=== PATIENT | female | born 1995 | race Asian ===

== ENCOUNTER 2016-08-17 23:16 | Inpatient (IN) | payer OTHER ==
--- NOTE | 2016-08-17 23:39 | ED ---
Ayden Darby Rebecca, scribed for Rick Crowley MD on 08/17/16 at 2332 . Psychiatric Complaint - HPI Summary HPI Summary: Pt is a 21 y/o F [facility] police as a 941 for sudden onset SIs and depression. Sx began suddenly tonight and have been constant since onset. Reports that she had SIs earlier, but sx have resolved. Currently is still mildly sad/depressed. Sx aggravated by a recent break up, alleviated by nothing. Denies any pain. - History Of Current Complaint Chief Complaint: EDMentalHealth Time Seen by Provider: 08/17/16 23:26 Hx Obtained From: Patient Onset/Duration: Sudden Onset, Lasting Hours Timing: Constant Severity Initially: Moderate Severity Currently: Mild Character: Depressed Aggravating Factor(s): Recent Stress - Breakup Alleviating Factor(s): Nothing Associated Signs And Symptoms: Positive: Negative Has Suicidal: Reports: Thoughts - Previously, resolved Recent Stressor(s): Break up - Allergies/Home Medications Allergies/Adverse Reactions: Allergies Allergy/AdvReac Type Severity Reaction Status Date / Time Peanut-containing Drug Allergy Severe Anaphylatic Verified 08/17/16 23:24 Products Shock Cumin Oil Allergy Hives/Diff. Verified 08/17/16 23:24 Breathing/I tching Eggs or Egg-derived Products Allergy Hives/Diff. Verified 08/17/16 23:24 Breathing/I tching Levofloxacin [From Levaquin] Allergy Diarrhea Verified 08/17/16 23:24 Peanut Oil Allergy Hives/Diff. Verified 08/17/16 23:24 Breathing/I tching Tigist Oil Allergy Hives/Diff. Verified 08/17/16 23:24 Breathing/I tching Shellfish-derived Products Allergy Hives/Diff. Verified 08/17/16 23:24 Breathing/I tching Tree Nuts Allergy Hives/Diff. Verified 08/17/16 23:24 Breathing/I tching Home Medications: Home Medications Lurasidone HCl [Latuda] 20 mg PO DAILY 08/18/16 [History Confirmed 08/18/16] PMH/Surg Hx/FS Hx/Imm Hx Respiratory History: Reports: Hx Pneumonia GI History: Reports: Other GI Disorders - ulcerative colitis, not active since 2013 Sensory History: Reports: Hx Contacts or Glasses Opthamlomology History: Reports: Hx Contacts or Glasses Psychiatric History: Reports: Hx Anxiety, Hx Post Traumatic Stress Disorder, Hx Community Mental Health Tx, Hx Suicide Attempt - OD Denies: Hx Eating Disorder, Hx of Violent Episodes Against Others Infectious Disease History: No Infectious Disease History: Denies: Traveled Outside the [place] in Last 30 Days - Family History Known Family History: Positive: Unknown - Social History Alcohol Use: Rare Alcohol Amount: 1 drink Substance Use Type: Reports: Marijuana Substance Use Comment - Amount & Last Used: pt stated she smokes about 1x per month Smoking Status (MU): Light Every Day Tobacco Smoker Amount Used/How Often: Smokes socially Review of Systems Negative: Arthralgia Positive: Depressed All Other Systems Reviewed And Are Negative: Yes Physical Exam Triage Information Reviewed: Yes Vital Signs On Initial Exam: Initial Vitals Temp Pulse Resp BP Pulse Ox 97.7 F 88 14 110/78 98 08/17/16 23:19 08/17/16 23:19 08/17/16 23:19 08/17/16 23:19 08/17/16 23:19 Vital Signs Reviewed: Yes Appearance: Positive: No Pain Distress, Thin Skin: Positive: Warm Head/Face: Positive: Normal Head/Face Inspection Eyes: Positive: ENUICE Neck: Positive: Supple Respiratory/Lung Sounds: Positive: Clear to Auscultation, Breath Sounds Present Cardiovascular: Positive: Normal Abdomen Description: Positive: Nontender, Soft Musculoskeletal: Positive: Strength/ROM Intact Neurological: Positive: Alert, Oriented to Person Place, Time Diagnostics - Vital Signs Vital Signs Temp Pulse Resp BP Pulse Ox 08/17/16 23:19 97.7 F 88 14 110/78 98 - Laboratory Result Diagrams: 08/17/16 23:35 08/17/16 23:35 Lab Statement: Any lab studies that have been ordered have been reviewed, and results considered in the medical decision making process. Course/Dx - Course Assessment/Plan: She is a 21 y/o F with [facility] [employer] police as a 941 with sudden onset SIs and depression, caused by recent break up. Confirmed SIs have resolved. Is still mildly depressed. Denies any pain. Medically cleared for MHE at 0043. Pt will be admitted on status with a dx of suicidal ideations. - Differential Dx/Clinical Impression Provider Diagnosis: Suicidal ideations Discharge - Discharge Plan Condition: Guarded Disposition: ADMITTED TO [facility] The documentation as recorded by the Ayden cruz Rebecca accurately reflects the service I personally performed and the decisions made by me, Rick Crowley MD.
[2016-08-17 23:47] LABS: Hematocrit 38 % (35-47); Hemoglobin 12.6 g/dl (12.0-16.0); Mean Corpuscular HGB Conc 33 g/dl (31-36); Mean Corpuscular Hemoglobin 30 pg (27-31); Mean Corpuscular Volume 91 fL (80-97); Mean Platelet Volume 8 um3 (7.4-10.4); Red Blood Count 4.21 10^6/ul (4.0-5.4); Red Cell Distribution Width 13 % (10.5-15); White Blood Count 9.9 10^3/ul (3.5-10.8)
[2016-08-18] LABS: Urine Bacteria 2+ (Absent); Urine Bilirubin Negative (Negative); Urine Glucose Negative (Negative); Urine Nitrite Negative (Negative)
[2016-08-18 00:04] LABS: ALT 8 U/L (7-52); AST 13 U/L (13-39); Albumin 4.3 g/dL (3.2-5.2); Alkaline Phosphatase 48 U/L (34-104); Anion Gap 8 mmol/L (2-11); Blood Urea Nitrogen 14 mg/dL (6-24); CO2 Carbon Dioxide 24 mmol/L (22-32); Calcium 8.9 mg/dL (8.6-10.3); Chloride 103 mmol/L (101-111); EGFR African American 135.8 (>60); EGFR Non-African American 105.6 (>60); Glucose 97 mg/dL (70-100); Potassium 3.3 mmol/L (3.5-5.0); Sodium 135 mmol/L (133-145); Total Protein 7.3 g/dL (6.4-8.9)
[2016-08-18 00:10] LABS: Benzodiazepine Urine Screen None Detected (None Detect)
[2016-08-18 00:38] LABS: Acetaminophen < 15 mcg/mL; Alcohol < 10 mg/dL (<10); Salicylate < 2.50 mg/dL (<30)
[2016-08-18 00:48] LABS: TSH (Thyroid Stimulating Horm) 2.89 mcIU/mL (0.34-5.60)
[2016-08-18] MEDS ORDERED: Acetaminophen TAB* 325 MG PO ONE (09:00)
[2016-08-18] MEDS ORDERED: LORazepam TAB(*) 1 MG PO ONE ×2 (11:25→14:00)
[2016-08-18] MEDS ORDERED: LORazepam TAB(*) 1 MG ONE (14:55)
[2016-08-18] MEDS ORDERED: Nicotine Inhaler* 10 MG AMP INH PRN (20:35)
[2016-08-18] MEDS ORDERED: Nicotine GUM* 2 MG PO PRN (20:35)
[2016-08-18] MEDS ORDERED: hydrOXYzine HCL TAB* 50 MG PO ONE (21:00)
[2016-08-19] MEDS ORDERED: hydrOXYzine HCL TAB* 50 MG PO PRN (11:41)
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
[2016-08-19] MEDS: CMCS: Lurasidone (NF) 20 MG TAB PO SCH (17:06)
--- NOTE | 2016-08-20 14:09 | PN ---
MHU: Group Therapy Note - Service Type Service Type: [id number] Group Psychotherapy - Cognitive Behavioral Group Therapy ( CBT):Patient was attentive and participatory in CBT programming this morning, and remained in good behavioral control. Patient expressed positive insights regarding relevant treatment interventions and goals.
--- NOTE | 2016-08-20 16:28 | PN ---
Subjective - Subjective Service Type: 55905 Hosp care 15 min low complexity Subjective: Irais reports oversedation at 50 mg dosing of prn hydroxyzine for anxiety, and requests another medication for anxiety. She reports that her appetite has returned. She reports that Latuda makes her feel restless and has been causing troubles with her sleep, but she feels it has been helpful for her mood and so she wants to continue taking it. She says her main problem now is with anxiety , that she rates 8/10. She reports that when she was admitted she told the government instructor in the ED that she would not work with Dr Magallon. She says this is because he told her she is narcissistic and has borderline personality disorder. Objective - Appearance Appearance: Healthy Appearing Dysmorphic Features: No Hygiene: Normal Grooming: Well Kept - Behavior Psychomotor Activities: Normal Exhibits Abnormal Movement: No - Attitude and Relatedness Attitude and Relatedness: Well Related Eye Contact: Good - Speech Quality: Unpressured Latencies: Long Quantity: Appropriate - Mood Patient's Decription of Mood: "Anxious" - Affect Observed Affect: Depressed Affect Consistent with: Dysphoria - Thought Process Patient's Thought Process: Coherent, Goal Directed Thought Content: No Passive Wish, No Suicidal Planning, No Homicidal Ideation, No Paranoid Ideation - Sensorium Experiencing Hallucinations: No, Sensorium is Clear Type of Hallucinations: Visual: No, Auditory: No, Command: No - Level of Consciousness Level of Consciousness: Alert Orientation: Yes Intact, Yes Orientated to Time, Yes Orientated to Place, Yes Orientated to Person - Impulse Control Impulse Control: Tenuous - Insight and Judgement Insight and Judgement: Poor - Group Participation Particating in Group Activities: Yes - Medication Management Medication Management Adherence: Yes Assessment - Assessment Merits Inpatient Hospitalization: For Stabilization, For Discharge Planning Inpatient DSM-IV Dx: By history bipolar affective disorder; also by history borderline personality disorder; benzodiazepine use disorder, severe, reportedly in sustained remission, notably with a negative toxicology screen for benzodiazepines. Clinical Impression: This is the third psychiatric admission for this 21-year-old woman who has been variously diagnosed with borderline personality disorder and bipolar affective disorder. She presents on this occasion saying that she feels that she is in the midst of a mixed episode with some depressive and some manic symptoms, but notably the depressive symptoms, in fact most symptoms, in response to a break- up with a 62 year-old boyfriend. Her reactive mood points toward diagnosis with some form of personality disorder. On review of specific symptomatology of borderline personality disorder, such as stormy relationships, unstable sense of self, labile mood, self-injurious behaviors and parasuicidal gestures, she does give negative report. We will be continuing for now the Latuda that she has started with Dr. Isaacs. 3.24.17 For anxiety, we will try reduced dosing of hydroxyzine. I explained to Irais that narcissism is a wide ranging psychological entity, and of Dr Magallon spoke of it with her it would be toward developing a better understanding of he psychological difficulties toward the goal of better mental health. I encouraged her to broach her concerns with him this weekend with the goal of better understanding. Plan - Plan Treatment Plan: Name: IRAIS ARROYO Birthdate: 1995 [id number] Continue Latuda, reduce dose of hydroxyzine to 10 mg. Encourage groups, milieu and a collaborative stance with the extended treatment team. Monitor MS and safety. Arrange follow up with Dr Isaacs et al at [facility]. Medications: Current Medications Hydroxyzine HCl (Atarax Tab*) 10 mg PO Q4H PRN PRN Reason: ANXIETY Lurasidone HCl (Latuda (Nf)) 20 mg PO 1700 JES Last Admin: 08/19/16 17:06 Dose: 20 mg Nicotine (Nicotine Inhaler*) 10 mg INH Q2H PRN PRN Reason: CRAVING Nicotine Polacrilex (Nicotine Gum*) 2 mg PO Q2H PRN PRN Reason: CRAVING Last Admin: 08/19/16 12:23 Dose: 2 mg - Discharge Plan Discharge Plan: Outpatient Follow Up Outpatient Program: [facility]
[2016-08-20] MEDS: CMCS: Lurasidone (NF) 20 MG TAB PO SCH (16:43)
[2016-08-20] MEDS ORDERED: Mouth Piece, Nicotine* 1 EACH CARTRIDGE ONE (18:24)
[2016-08-20] MEDS: Nicotine Inhaler* 10 MG AMP INH PRN ×2 (18:24→18:27)
[2016-08-20] MEDS: hydrOXYzine HCL TAB* 50 MG PO PRN (19:04)
[2016-08-21] MEDS: hydrOXYzine HCL TAB* 50 MG PO PRN ×2 (04:19→19:50)
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
[2016-08-21] MEDS: CMCS: Lurasidone (NF) 20 MG TAB PO SCH (17:46)
[2016-08-22] MEDS: hydrOXYzine HCL TAB* 50 MG PO PRN (03:35)
[2016-08-22] MEDS: CMCS: Lurasidone (NF) 20 MG TAB PO SCH (16:54)
[2016-08-22] MEDS: hydrOXYzine HCL TAB* 10 MG PO PRN (20:42)
[2016-08-22] MEDS ORDERED: Al Hydrox/Mg Hydrox/Simet LIQ* 30 ML UDC PO PRN (22:57)
[2016-08-22] MEDS ORDERED: Acetaminophen TAB* 325 MG PO PRN (22:57)
[2016-08-23] MEDS: hydrOXYzine HCL TAB* 10 MG PO PRN (00:08)
[2016-08-23] MEDS ORDERED: Vitamin THERAPEUTIC TAB PO SCH (09:00)
[2016-08-23 09:41] VITALS: BP 91/58
[2016-08-23] MEDS ORDERED: hydrOXYzine HCL TAB* 10 MG PO PRN (11:47)
--- NOTE | 2016-08-23 11:47 | DS ---
Subjective - Subjective Service Types: 22293 [facility] Day Mgmt simple under 30 min Discharge Date: 08/23/16 Subjective: Porsche reported satisfaction with improvements and requested discharge. She denied ongoing emotional pain, or un-manageable anxiety. She denied wishes or suicidal ideation. We reviewed her course, medications, and aftercare plan. She said she sees no obstacles to getting routine care or accessing emergency help if needed. Objective - Appearance Appearance: Thin Framed Hygiene: Normal Grooming: Well Kept - Behavior Psychomotor Activities: Normal - Attitude and Relatedness Attitude and Relatedness: Cooperative Eye Contact: Good - Speech Quality: Unpressured Latencies: Normal Quantity: Terse - Mood Patient's Decription of Mood: "Fine" - Affect Observed Affect: Non-labile Affect Consistent with: Euthymia - Thought Process Patient's Thought Process: Coherent, Goal Directed Thought Content: No Passive Wish, No Suicidal Planning, No Homicidal Ideation, No Paranoid Ideation - Sensorium Experiencing Hallucinations: No, Sensorium is Clear - Level of Consciousness Level of Consciousness: Alert - Impulse Control Impulse Control: Intact - Insight and Judgement Insight and Judgement: Good Treatment Course & Assessment Clinical Course & Impression: 21 y/o female with a history of prior psychiatric hospitalizations, trauma, consideration for PTSD and Bipolar spectrum disorder, personality disorder features, suicidal behavior, substance use disorder. She was admitted after being brought to the hospital ED by law enforcement after she called reporting suicidal ideation. Context is relationship ambiguity with her boyfriend. 08/23/16: Clear for release. Porsche stabilized here. She was safe on checks, adherent with routines, in behavioral control, and free of active suicidal ideation. She was progressively more mildly symptomatic - and had reductions in her dysphoria and worry. Her concerns were focused on the strained relationship with boyfriend., and based on symptom course, her crisis was one of adjustment. She is not in an ongoing major mood episode and acute impairment is corrected. Medication management was with Latuda for mood symptoms, hydroxyzine PRN anxiety. Porsche is appropriate for outpatient care. Her profile and history suggest she is at continued risk for similar episodes. Chronic suicide risk is elevated on basis of her diagnosis and prior behaviors. Acute risk is assessed as low due to reduced symptom burden, correction of impairment, and her benign observed behavior and ideation. Inpatient DSM-IV Dx: Mood disorder, unspecified. Adjustment disorder with depressed mood and anxiety. Rule out Bipolar Disorder. Consider Personality Disorder / traits. Consider PTSD. Benzodiazepine use disorder, in sustained remission Discharge Planning - Discharge Planning Discharge Plan: Outpatient Follow Up Outpatient Program: [facility] Recommendations for Continuing Care: Medication Management, Psychotherapy, Substance Abuse Counseling Medications: Current Medications Hydroxyzine HCl (Atarax Tab*) 10 mg PO Q4H PRN PRN Reason: ANXIETY/insomnia Last Admin: 08/23/16 00:08 Dose: 10 mg Lurasidone HCl (Latuda (Nf)) 20 mg PO 1700 JES Last Admin: 08/22/16 16:54 Dose: 20 mg Nicotine (Nicotine Inhaler*) 10 mg INH Q2H PRN PRN Reason: CRAVING Discharge Planning: Prescriptions provided for discharge [x] Yes hydroxyzine Follow up care details as per social work arrangements. Patient response to discharge plan: [x] eager for discharge [] agreeable with discharge plan [] ambivalent about discharge [] disagrees with discharge today
--- NOTE | 2016-08-23 14:09 | PN ---
[facility]: Group Therapy Note - Service Type Service Type: 05901 Group Psychotherapy - Cognitive Behavioral Group Therapy ( CBT):Patient attended CBT programming this morning and presented with flat affect that did not vary with discussion. Although responsive to direct prompts to respond to questions, patient did not engage in spontaneous conversation.
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
== END 2016-08-23 14:15 | disposition home or self-care (01) | DRG 885 ==
LOC: ED 23:16 → BSU 08-18 05:28 → UNDOADMIN 08-18 05:28 → ED 08-18 05:30 → UNDOADMIN 08-18 09:00 → BSU 08-18 09:00
PROVIDERS: ADMIT Psychiatry & Neurology Psychiatry; ATTEND Psychiatry & Neurology Psychiatry
DX: F39 Unspecified mood [affective] disorder (principal); R45.851 Suicidal ideations; F31.9 Bipolar disorder, unspecified; F43.23 Adjustment disorder with mixed anxiety and depressed mood; F60.3 Borderline personality disorder; F17.210 Nicotine dependence, cigarettes, uncomplicated; F19.10 Other psychoactive substance abuse, uncomplicated; Z88.8 Allergy status to other drugs, medicaments and biological substances; Z91.012 Allergy to eggs; Z88.1 Allergy status to other antibiotic agents; Z91.018 Allergy to other foods; Z91.010 Allergy to peanuts; Z91.013 Allergy to seafood
CPT/HCPCS: 36415; 80053; 80307; 80320; 80329; 81003; 81015; 84443; 84702; 85025; 87077; 87086; 87186; A9270-GY; G0480

== ENCOUNTER 2017-02-05 17:37 | Emergency (ER) | payer OTHER ==
[2017-02-05] MEDS ORDERED: NS 0.9% 1000 ML* 1,000 ML IV ONE (19:32)
[2017-02-05] MEDS ORDERED: Ondansetron INJ* 2 MG/ML VIAL IV ONE (19:32)
[2017-02-05 19:52] LABS: Urine Bacteria Absent (Absent); Urine Bilirubin Negative (Negative); Urine Glucose Negative (Negative); Urine Nitrite Negative (Negative)
[2017-02-05] MEDS ORDERED: Ketorolac INJ* 15 MG/ML 1 ML VIAL IV PUSH ONE (19:53)
[2017-02-05] MEDS ORDERED: Ketorolac INJ* 15 MG/ML 1 ML VIAL ONE (19:53)
[2017-02-05 19:58] LABS: Hematocrit 43 % (35-47); Hemoglobin 14.3 g/dl (12.0-16.0); Mean Corpuscular HGB Conc 34 g/dl (31-36); Mean Corpuscular Hemoglobin 31 pg (27-31); Mean Corpuscular Volume 91 fL (80-97); Mean Platelet Volume 8 um3 (7.4-10.4); Red Blood Count 4.66 10^6/ul (4.0-5.4); Red Cell Distribution Width 13 % (10.5-15); White Blood Count 13.9 10^3/ul (3.5-10.8)
[2017-02-05 20:13] LABS: ALT 9 U/L (7-52); AST 16 U/L (13-39); Albumin 4.9 g/dL (3.2-5.2); Alkaline Phosphatase 49 U/L (34-104); Anion Gap 8 mmol/L (2-11); BUN/Creatinine Ratio 14.9 (8-20); Blood Urea Nitrogen 10 mg/dL (6-24); CO2 Carbon Dioxide 24 mmol/L (22-32); Calcium 9.8 mg/dL (8.6-10.3); Chloride 104 mmol/L (101-111); EGFR African American 142.9 (>60); EGFR Non-African American 111.1 (>60); Globulin 3.1 g/dL (2-4); Glucose 89 mg/dL (70-100); Potassium 3.5 mmol/L (3.5-5.0); Sodium 136 mmol/L (133-145)
[2017-02-05 21:49] VITALS: BP 109/71
--- NOTE | 2017-02-06 04:37 | ED ---
Belgica Darby Thomas, scribed for Claudia Ramey MD on 02/05/17 at 1932 . Abdominal Pain/Female - HPI Summary HPI Summary: The pt is a 21 y/o F accompanied by her friend and presenting to the ED c/o intermittent abd cramping that began today at 17:00. After smoking a cigarette, she had near-syncope, then vomited, then had a syncopal episode. After this syncope, the patient became dizzy, laid on the floor, and then her abdominal pain began. She then had diarrhea (a small amount). Her pain has since migrated to her legs. She also says that this pain unlike that of her normal ulcerative colitis. The patient rates the pain 8/10. The pain is aggravated and alleviated by nothing. 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 The patient reports that her pain feels like menstrual cramps. She also complains of shaking and chills. She is currently menstruating. She is not bleeding more than normal. This period came on time and her last period was 12/28/16. She has had unprotected sex in the last month. She is not on any daily medication. PMHx : ulcerative colitis, anxiety, PTSD. PSHx: none. SHx: smoking, occasional alcohol use, no illicit drug use. FHx: HTN. She is currently menstruating. Previously she has been seen at [facility] in the [facility]. Patients medication reviewed this visit. - History of Current Complaint Chief Complaint: EDAbdPain Stated Complaint: PERIOD PAINS Time Seen by Provider: 02/05/17 19:16 Hx Obtained From: Patient, Other: - A friend is present in the examination room Hx Last Menstrual Period: Current ?: No Onset/Duration: Sudden Onset, Lasting Hours - onset today at 17:00, Still Present Timing: Constant Severity Currently: Severe Pain Intensity: 8 Pain Scale Used: 0-10 Numeric Radiates: Yes Radiates to: Other - Legs Character: Cramping, Other: - Like her normal mesntrual cramps Aggravating Factor(s): Nothing Alleviating Factor(s): Nothing Associated Signs and Symptoms: Positive: Dizzy, Vomiting, Diarrhea, Other: - POS : syncope, shaking, chills. Negative: Fever Allergies/Adverse Reactions: Allergies Allergy/AdvReac Type Severity Reaction Status Date / Time Peanut-containing Drug Allergy Severe Anaphylatic Verified 02/05/17 18:44 Products Shock Cumin Oil Allergy Hives/Diff. Verified 02/05/17 18:44 Breathing/I tching Eggs or Egg-derived Products Allergy Hives/Diff. Verified 02/05/17 18:44 Breathing/I tching Levofloxacin [From Levaquin] Allergy Diarrhea Verified 02/05/17 18:44 Peanut Oil Allergy Hives/Diff. Verified 02/05/17 18:44 Breathing/I tching Tigist Oil Allergy Hives/Diff. Verified 02/05/17 18:44 Breathing/I tching Shellfish-derived Products Allergy Hives/Diff. Verified 02/05/17 18:44 Breathing/I tching Tree Nuts Allergy Hives/Diff. Verified 02/05/17 18:44 Breathing/I tching Home Medications: Home Medications NK [No Home Medications Reported] 02/05/17 [History Confirmed 02/05/17] PMH/Surg Hx/FS Hx/Imm Hx Previously Healthy: No Respiratory History: Reports: Hx Pneumonia GI History: Reports: Other GI Disorders - ulcerative colitis, not active since 2013 Sensory History: Reports: Hx Contacts or Glasses Denies: Hx Hearing Aid Opthamlomology History: Reports: Hx Contacts or Glasses Psychiatric History: Reports: Hx Anxiety, Hx Post Traumatic Stress Disorder, Hx Community Mental Health Tx, Hx Suicide Attempt - OD Denies: Hx Eating Disorder, Hx of Violent Episodes Against Others - Surgical History Surgery Procedure, Year, and Place: None. Infectious Disease History: No Infectious Disease History: Denies: Traveled Outside the [place] in Last 30 Days - Family History Known Family History: Positive: Hypertension - Social History Alcohol Use: None Alcohol Amount: 1 drink Substance Use Type: Reports: None Hx Tobacco Use: Yes Smoking Status (MU): Light Every Day Tobacco Smoker Amount Used/How Often: Smokes socially Review of Systems Positive: Chills, Other - POS: shaking. Negative: Fever Positive: Abdominal Pain - described as cramping, Vomiting, Diarrhea, Nausea Neurological: Other - POS: dizziness, syncope All Other Systems Reviewed And Are Negative: Yes Physical Exam Triage Information Reviewed: Yes Vital Signs On Initial Exam: Initial Vitals Temp Pulse Resp BP Pulse Ox 98.6 F 91 14 101/66 100 02/05/17 18:01 02/05/17 18:01 02/05/17 18:01 02/05/17 18:01 02/05/17 18:01 Vital Signs Reviewed: Yes Appearance: Positive: Well-Appearing, Well-Nourished, Pain Distress Skin: Positive: Warm, Skin Color Reflects Adequate Perfusion Head/Face: Positive: Normal Head/Face Inspection Eyes: Positive: Conjunctiva Clear ENT: Positive: Normal ENT inspection Neck: Positive: Supple Respiratory/Lung Sounds: Positive: Clear to Auscultation, Breath Sounds Present , Other - No respiratory distress Cardiovascular: Positive: RRR, Pulses are Symmetrical in both Upper and Lower Extremities, Other - Brisk cap refill. Negative: Murmur Abdomen Description: Positive: Nontender, Soft Bowel Sounds: Positive: Present Pelvic Exam: Positive: other - There is a menstrual pad. She has dark and regular menstrual blood. Musculoskeletal: Positive: Strength/ROM Intact Neurological: Positive: Sensory/Motor Intact, Alert, Oriented to Person Place, Time, Facial Symmetry, Speech Normal Psychiatric: Positive: Normal Diagnostics - Vital Signs Vital Signs Temp Pulse Resp BP Pulse Ox 02/05/17 18:01 98.6 F 91 14 101/66 100 - Laboratory Lab Results: Lab Results 02/05/17 02/05/17 02/05/17 Range/Units 19:43 19:48 19:48 WBC 13.9 H (3.5-10.8) 10^3/ul RBC 4.66 (4.0-5.4) 10^6/ul Hgb 14.3 (12.0-16.0) g/dl Hct 43 (35-47) % MCV 91 (80-97) fL MCH 31 (27-31) pg MCHC 34 (31-36) g/dl RDW 13 (10.5-15) % Plt Count 247 (150-450) 10^3/ul MPV 8 (7.4-10.4) um3 Neut % (Auto) 79.9 (38-83) % Lymph % (Auto) 14.0 L (25-47) % [place] % (Auto) 5.2 (1-9) % Eos % (Auto) 0.6 (0-6) % Baso % (Auto) 0.3 (0-2) % Absolute Neuts (auto) 11.1 H (1.5-7.7) 10^3/ul Absolute Lymphs (auto) 2.0 (1.0-4.8) 10^3/ul Absolute Monos (auto) 0.7 (0-0.8) 10^3/ul Absolute Eos (auto) 0.1 (0-0.6) 10^3/ul Absolute Basos (auto) 0 (0-0.2) 10^3/ul Absolute Nucleated RBC 0 10^3/ul Nucleated RBC % 0 INR (Anticoag Therapy) 0.95 (0.89-1.11) APTT 24.2 L (26.0-36.3) seconds Sodium (133-145) mmol/L Potassium (3.5-5.0) mmol/L Chloride (101-111) mmol/L Carbon Dioxide (22-32) mmol/L Anion Gap (2-11) mmol/L BUN (6-24) mg/dL Creatinine (0.51-0.95) mg/dL Est GFR ( Amer) (>60) Est GFR (Non-Af Amer) (>60) BUN/Creatinine Ratio (8-20) Glucose (70-100) mg/dL Lactic Acid (0.5-2.0) mmol/L Calcium (8.6-10.3) mg/dL Total Bilirubin (0.2-1.0) mg/dL AST (13-39) U/L ALT (7-52) U/L Alkaline Phosphatase (34-104) U/L Total Protein (6.4-8.9) g/dL Albumin (3.2-5.2) g/dL Globulin (2-4) g/dL Albumin/Globulin Ratio (1-3) Beta HCG, Quant mIU/mL Urine Color Yellow Urine Appearance Clear Urine pH 7.0 (5-9) Ur Specific Helm 1.010 (1.010-1.030) Urine Protein Negative (Negative) Urine Ketones Negative (Negative) Urine Blood 2+ H (Negative) Urine Nitrate Negative (Negative) Urine Bilirubin Negative (Negative) Urine Urobilinogen Negative (Negative) Ur Leukocyte Esterase Negative (Negative) Urine WBC (Auto) Absent (Absent) Urine RBC (Auto) Trace(0-2/hpf) (Absent) Ur Squamous Epith Cells Present H (Absent) Urine Bacteria Absent (Absent) Urine Glucose Negative (Negative) Blood Type Antibody Screen 02/05/17 02/05/17 02/05/17 Range/Units 19:48 19:48 19:48 WBC (3.5-10.8) 10^3/ul RBC (4.0-5.4) 10^6/ul Hgb (12.0-16.0) g/dl Hct (35-47) % MCV (80-97) fL MCH (27-31) pg MCHC (31-36) g/dl RDW (10.5-15) % Plt Count (150-450) 10^3/ul MPV (7.4-10.4) um3 Neut % (Auto) (38-83) % Lymph % (Auto) (25-47) % [place] % (Auto) (1-9) % Eos % (Auto) (0-6) % Baso % (Auto) (0-2) % Absolute Neuts (auto) (1.5-7.7) 10^3/ul Absolute Lymphs (auto) (1.0-4.8) 10^3/ul Absolute Monos (auto) (0-0.8) 10^3/ul Absolute Eos (auto) (0-0.6) 10^3/ul Absolute Basos (auto) (0-0.2) 10^3/ul Absolute Nucleated RBC 10^3/ul Nucleated RBC % INR (Anticoag Therapy) (0.89-1.11) APTT (26.0-36.3) seconds Sodium 136 (133-145) mmol/L Potassium 3.5 (3.5-5.0) mmol/L Chloride 104 (101-111) mmol/L Carbon Dioxide 24 (22-32) mmol/L Anion Gap 8 (2-11) mmol/L BUN 10 (6-24) mg/dL Creatinine 0.67 (0.51-0.95) mg/dL Est GFR ( Amer) 142.9 (>60) Est GFR (Non-Af Amer) 111.1 (>60) BUN/Creatinine Ratio 14.9 (8-20) Glucose 89 (70-100) mg/dL Lactic Acid 1.1 (0.5-2.0) mmol/L Calcium 9.8 (8.6-10.3) mg/dL Total Bilirubin 0.50 (0.2-1.0) mg/dL AST 16 (13-39) U/L ALT 9 (7-52) U/L Alkaline Phosphatase 49 (34-104) U/L Total Protein 8.0 (6.4-8.9) g/dL Albumin 4.9 (3.2-5.2) g/dL Globulin 3.1 (2-4) g/dL Albumin/Globulin Ratio 1.6 (1-3) Beta HCG, Quant < 0.60 mIU/mL Urine Color Urine Appearance Urine pH (5-9) Ur Specific Helm (1.010-1.030) Urine Protein (Negative) Urine Ketones (Negative) Urine Blood (Negative) Urine Nitrate (Negative) Urine Bilirubin (Negative) Urine Urobilinogen (Negative) Ur Leukocyte Esterase (Negative) Urine WBC (Auto) (Absent) Urine RBC (Auto) (Absent) Ur Squamous Epith Cells (Absent) Urine Bacteria (Absent) Urine Glucose (Negative) Blood Type A Positive Antibody Screen Negative Result Diagrams: 02/05/17 19:48 02/05/17 19:48 Lab Statement: Any lab studies that have been ordered have been reviewed, and results considered in the medical decision making process. Re-Evaluation - Re-Evaluation First Eval Re-Evaluation Time: 21:29 Change: Unchanged Comment: She was re-examined. Abdominal Pain Fem Course/Dx - Course Course Of Treatment: The pt is a 21 y/o F intermittent abd cramping that began today at 17:00. She had a syncopal episode and has also had dizziness, vomiting , and diarrhea. She is currently menstruating and also has a Hx of ulcerative colitis. In the ED course the patient was given IV fluids, Toradol, and Zofran. Bloodwork shows WBC 13.9. UA shows 2+ blood and present squamous cells. Blood type is A positive. She is diagnosed with dysmenorrhea, ulcerative colitis, and mild dehydration. She will be discharged home. Patient is agreeable to this plan. - Diagnoses Provider Diagnoses: Dysmenorrhea, Ulcerative colitis, Mild dehydration Discharge - Discharge Plan Condition: Stable Disposition: HOME Patient Education Materials: Dysmenorrhea (ED), Ulcerative Colitis (ED) Referrals: Non Staff,Doctor [Primary Care Provider] - Additional Instructions: Dr. Ramey gave you a liter of IV fluids and ketorolac 15mg IV for the pain and you felt much better. Please follow up with [facility] as needed, or return to the ER if you have any new or worsening symptoms. The documentation as recorded by the Belgica cruz Thomas accurately reflects the service I personally performed and the decisions made by me, Claudia Ramey MD.
== END 2017-02-05 21:51 | disposition home or self-care (01) ==
LOC: ED 17:37
DX: N94.6 Dysmenorrhea, unspecified (principal); K51.90 Ulcerative colitis, unspecified, without complications; E86.0 Dehydration; F41.9 Anxiety disorder, unspecified; F43.10 Post-traumatic stress disorder, unspecified; F17.210 Nicotine dependence, cigarettes, uncomplicated
CPT/HCPCS: 36415; 80053; 81003; 81015; 83605; 84702; 85025; 85610; 85730; 86850; 86900; 86901; 96360; 96374; 99283; J1885; J2405